=== PATIENT | female | born 1935 | race Caucasian/White ===

== ENCOUNTER 2017-03-20 09:37 | Observation (INO) | payer MEDICARE, OTHER ==
[~2017-03-20] VITALS: Ht 152.4 cm; Wt 68.2 kg
[2017-03-20] MEDS ORDERED: SOD CHLORIDE 0.9% 500 ML IV STA (09:41)
[2017-03-20] MEDS ORDERED: ONDANSETRON 4 MG INJ IV STA (09:41)
[2017-03-20] MEDS ORDERED: morphine 4 MG/ML VIAL IV STA (09:41)
[2017-03-20] MEDS ORDERED: DIPHTH/TET/ACEL PERTUSS (ADULT) 0.5 ML VIAL IM* ONE (10:00)
--- NOTE | 2017-03-20 10:02 | ERD ---
ER Documentation Chief Complaint Date/Time DATE: 03/20/17 TIME: 10:00 Chief Complaint face pain from a trip and fall no loc. mild neck pain. epistaxis noted. HPI 81-year-old woman brought in by EMS after questionable mechanical trip and fall while taking out the trash. Patient does not recall the episode and family members were later at the bedside states she has had 2 similar syncopal episodes over the last few weeks. They suspect prior to syncope her blood pressure has been running on the low side. The episode was at least partially witnessed by a neighbor and there was no seizure activity noted. She sustained bleeding from the bridge of the nose and abrasion to the right cheek. There was no loss of consciousness, no difficulty ambulating after the fall, no chest pain or shortness of breath, no complaints of headache or blurry vision, no vomiting. Patient was transported here by EMS without further complications. ROS All systems reviewed and are negative except as per history of present illness. PMhx/Soc Obesity, diabetes mellitus, hypertension History of Surgery: Yes (hysterectomy, cataract surgery) Anesthesia Reaction: No Hx Neurological Disorder: No Hx Respiratory Disorders: No Hx Cardiac Disorders: No Hx Psychiatric Problems: No Hx Miscellaneous Medical Probl: Yes (hypertension and diabetes) Hx Alcohol Use: No Hx Substance Use: No Hx Tobacco Use: No Smoking Status: Never smoker FmHx Family History: No diabetes Physical Exam Vitals Vital Signs Date Time Temp Pulse Resp B/P Pulse Ox O2 Delivery O2 Flow Rate FiO2 03/20/17 11:51 72 20 152/84 98 03/20/17 09:47 97.9 80 20 130/63 98 Physical Exam GENERAL: Well-developed, well-nourished, well-hydrated, in no apparent distress , looks nontoxic in appearance, afebrile HEENT: Moist mucous membranes, pink conjunctiva, no cervical spine tenderness or step-off deformity, abrasions and contusions to the face including the right cheek and bridge of the nose with mild bleeding. NEURO: Alert and oriented 3, cranial nerves II through XII intact bilaterally, pupils equal round reactive to light, no focal deficits or facial asymmetry, sensation intact distally Strength 5/5 in upper and lower extremities bilaterally CARDIAC: Regular rate and rhythm, no murmurs rubs or gallops LUNGS: Clear bilaterally no wheezing crackles or stridor ABDOMEN: Soft nontender, no guarding, no rigidity, no rebound, no psoas sign no obturator sign. Normoactive bowel sounds SKIN: Warm and dry to touch, positive abrasions contusions to the face, no lacerations. EXTREMITIES: No clubbing cyanosis or edema, calves are bilaterally symmetrical, no Homans sign, no popliteal cord sign. Distal pulses equal and bilateral PSYCH: Normal affect without agitation or irritability Result Diagram: 03/20/17 1018 03/20/17 1018 Results 24 hrs Laboratory Tests Test 03/20/17 10:10 03/20/17 10:18 03/20/17 10:52 Troponin I < 0.012ng/ml White Blood Count 8.110^3/ul Red Blood Count 3.9510^6/ul Hemoglobin 11.8g/dl Hematocrit 35.0% Mean Corpuscular Volume 88.6fl Mean Corpuscular Hemoglobin 29.9pg Mean Corpuscular Hemoglobin Concent 33.7g/dl Red Cell Distribution Width 13.4% Platelet Count 50894^3/UL Mean Platelet Volume 10.0fl Neutrophils % 49.1% Lymphocytes % 41.0% Monocytes % 7.7% Eosinophils % 1.2% Basophils % 0.6% Nucleated Red Blood Cells % 0.0/100WBC Neutrophils # 4.010^3/ul Lymphocytes # 3.310^3/ul Monocytes # 0.610^3/ul Eosinophils # 0.110^3/ul Basophils # 0.110^3/ul Nucleated Red Blood Cells # 0.010^3/ul Prothrombin Time 12.2Sec Prothrombin Time Ratio 1.0 INR International Normalized Ratio 0.91 Sodium Level 141mmol/L Potassium Level 4.2mmol/L Chloride Level 102mmol/L Carbon Dioxide Level 22mmol/L Anion Gap 21 Blood Urea Nitrogen 27mg/dl Creatinine 1.21mg/dl Glucose Level 202mg/dl Calcium Level 9.8mg/dl Total Bilirubin 0.2mg/dl Direct Bilirubin 0.00mg/dl Indirect Bilirubin 0.2mg/dl Aspartate Amino Transf (AST/SGOT) 20IU/L Alanine Aminotransferase (ALT/SGPT) 31IU/L Alkaline Phosphatase 81IU/L Total Protein 7.4g/dl Albumin 4.2g/dl Globulin 3.20g/dl Albumin/Globulin Ratio 1.31 Lipase 38U/L Bedside Glucose 189mg/dL Current Medications Medications (Trade) Dose Ordered Sig/Rory Route PRN Reason Start Time Stop Time Status Last Admin Dose Admin Sodium Chloride (NS) 500 ml @ 500 mls/hr Q1H STAT IV 03/20/17 09:41 03/20/17 10:40 DC 03/20/17 10:10 Morphine Sulfate (morphine) 4 mg ONCE STAT IV 03/20/17 09:41 03/20/17 09:44 DC 03/20/17 10:14 Ondansetron HCl (Zofran Inj) 4 mg ONCE STAT IV 03/20/17 09:41 03/20/17 09:44 DC 03/20/17 10:10 Diphtheria/ Tetanus/Acell Pertussis (Adacel) 0.5 ml ONCE ONCE IM* 03/20/17 10:00 03/20/17 10:01 DC 03/20/17 10:46 Procedures/MDM IV line was established patient was placed on die trimmer rhythm strip revealed a sinus rhythm at about 70 bpm with upright P and T waves. Patient was afebrile. Patient was immediately placed in rigid cervical spine collar I administered 1 L normal saline intravenously, morphine 4 mg IV, Zofran 4 mg IV , tetanus toxoid 0.5 mL intramuscular injection. Patient's pain was controlled. Abrasions contusions were irrigated with normal saline, triple antibiotic ointment and gauze dressing was applied. CT scan of the brain was performed that was negative for acute bleed mass or shift. CT scan of the cervical spine was performed was negative for acute fracture or dislocation. Maxillofacial CT scan was performed that was negative for acute fractures or dislocations. Although there was nasal tip abnormality noted. Please refer to radiologist dictation for full report. One AP view of the chest performed, read by me reveals no acute infiltrates, normal mediastinum, sharp costophrenic and cardiac borders, no air under the diaphragm. Otherwise unremarkable chest x-ray. X-ray Pelvis 1V Interpreted by me: Bones: No fracture Joints: No dislocation Foreign body: None CBC and electrolytes were normal, liver function tests are normal, troponin was negative. EKG performed, read by me: 80 bpm, normal sinus rhythm, normal axis, first- degree atrial ventricular block with a OH interval of 216 ms, no acute ST segment changes, narrow QRS complex, with good R-wave progression in precordial leads. Patient will be admitted to telemetry setting for continued medical management cardiology consultation. Departure Diagnosis: Primary Impression: Syncope Syncope type: unspecified Qualified Code: R55 - Syncope, unspecified syncope type Additional Impressions: Facial contusion Encounter type: initial encounter Qualified Code: S00.83XA - Facial contusion, initial encounter Nasal fracture Encounter type: initial encounter Fracture type: closed Qualified Code: S02.2XXA - Closed fracture of nasal bone, initial encounter Abrasion Condition: ALBER Summers MD Mar 20, 2017 10:02
--- NOTE | 2017-03-20 10:21 | RADRPT ---
PROCEDURE: XR Chest. CLINICAL INDICATION: Trauma. Status post fall. Pain. TECHNIQUE: Single frontal chest x-ray. COMPARISON: None. FINDINGS: Cardiomegaly with hilar vascular and interstitial congestive changes are present. . No alveolar inf iltrates, edema, or effusions.. Calcific atherosclerosis of the aorta is present.. 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 IMPRESSION: Cardiomegaly with hilar vascular and interstitial congestive changes are. RPTAT: RR .Krishan Chong MD, MD Date Time Electronically viewed and signed by .Krishan Chong MD, MD on 03/20/2017 10:21 .L/
[2017-03-20 10:26] LABS: ADD SCAN DIFF NO
[2017-03-20 10:31] LABS: BASOPHIL # 0.1 10^3/ul (0.0-0.1); BASOPHILS % 0.6 % (0.0-2.0); EOSINOPHILS # 0.1 10^3/ul (0.0-0.5); EOSINOPHILS % 1.2 % (0.0-7.0); HEMOGLOBIN 11.8 g/dl (12.0-16.0); LYMPHOCYTES # 3.3 10^3/ul (0.8-2.9); MEAN CORPUSCULAR HEMOGLOBIN 29.9 pg (29.0-33.0); MEAN CORPUSCULAR HGB CONC 33.7 g/dl (32.0-37.0); MEAN CORPUSCULAR VOLUME 88.6 fl (82.0-101.0); MONOCYTE # 0.6 10^3/ul (0.3-0.9); MONOCYTES % 7.7 % (0.0-11.0); NEUTROPHILS % 49.1 % (39.0-77.0); PLATELET COUNT 221 10^3/UL (140-415); RED BLOOD COUNT 3.95 10^6/ul (4.20-5.40); RED CELL DISTRIBUTION WIDTH 13.4 % (11.5-14.5); WHITE BLOOD COUNT 8.1 10^3/ul (4.8-10.8)
--- NOTE | 2017-03-20 10:38 | RADRPT ---
PROCEDURE: CT face without contrast CLINICAL INDICATION: Fall, face pain TECHNIQUE: CT of the face without contrast was performed on a multidetector CT scanner, with multip lanar reformats. One or more of the following dose reduction techniques were used: Automated exposu re control, adjustment in mA and / or kV according to patient size, use of iterative reconstructive technique. CTDIvol = 29 mGy and DLP = 501 mGy-cm. COMPARISON: None available. FINDINGS: There is a mildly displaced fracture of the tip of of the nasal bones. The nasal septum is mildly d eviated to the right with possible subtle nondisplaced fracture of the anterior bony nasal septum. There is adjacent soft tissue swelling and tiny foci of gas. No additional facial fracture is ident ified. Orbital structures are intact with intraocular artificial lenses noted. Temporomandibular j oints are intact. There is partial right sphenoid sinus opacification with mucosal thickening and s ecretions, mild left sphenoid sinus mucosal thickening, mild to moderate bilateral anterior ethmoid air cell mucosal thickening. There are scattered dental caries with small periapical lucencies seen at the residual bilateral mandibular molars. There is a punctate calcification/calculus in the left parotid gland. IMPRESSION: 1. Mildly depressed fracture at the tip of the nasal bones, and mild leftward nasal septal deviatio n with possible subtle nondisplaced bony nasal septal fracture. 2. Paranasal sinus and disease described above. 3. Punctate left parotid calcification / calculus. RPTAT: VV .Jalen Masters MD, Date Time Electronically viewed and signed by .Jalen Masters MD, MD on 03/20/2017 10:38 .O/
--- NOTE | 2017-03-20 10:40 | RADRPT ---
PROCEDURE: CT brain without contrast CLINICAL INDICATION: Fall, head pain TECHNIQUE: CT of the brain without contrast performed on a multidetector CT scanner, with multiplan ar reformats. One or more of the following dose reduction techniques were used: Automated exposure control, adjustment in mA and / or kV according to patient size, use of iterative reconstructive joey hnique. CTDIvol = 44 mGy; DLP = 720 mGy-cm. COMPARISON: None available FINDINGS: No acute intracranial hemorrhage is identified. No extra-axial fluid collection is seen. There is no mass effect. No midline shift is identified. The ventricles and sulci are mild to moderately enlarged compatible with volume loss. There are mild areas of hypodensity in the periventricular - deep white matter which are nonspecific but suggestive of chronic small vessel ischemic changes. Cid-white differentiation is preserved. Atherosclerotic calcifications of the intracranial internal carotid arteries are noted. Calvarium and skull base are intact. Right mastoid under pneumatization noted. Facial findings will be described in the separate facial CT report. IMPRESSION: 1. No evidence of acute intracranial pathology. 2. Mild to moderate volume loss, with mild chronic small vessel ischemic changes. 3. See separate facial CT report for additional findings. RPTAT: VV .Jalen Masters MD, MD Date Time Electronically viewed and signed by .Jalen Masters MD, on 03/20/2017 10:40 .O/
[2017-03-20 10:44] LABS: INR 0.91; PROTIME 12.2 Sec (12.2-14.2)
[2017-03-20 10:48] LABS: ALBUMIN 4.2 g/dl (3.3-4.9); ALBUMIN/GLOBULIN RATIO 1.31; BILIRUBIN,INDIRECT 0.2 mg/dl (0-1.1); BILIRUBIN,TOTAL 0.2 mg/dl (0.2-1.3); CALCIUM 9.8 mg/dl (8.4-10.2); CREATININE 1.21 mg/dl (0.44-1.00); POTASSIUM 4.2 mmol/L (3.5-5.1); TOTAL PROTEIN 7.4 g/dl (6.1-8.1)
--- NOTE | 2017-03-20 10:50 | RADRPT ---
PROCEDURE: CT cervical spine without contrast. CLINICAL INDICATION: Fall. Neck pain. TECHNIQUE: CT of the cervical spine without contrast was performed on a multidetector CT scanner, w ith multiplanar reformats. One or more of the following dose reduction techniques were used: Automa maya exposure control, adjustment in mA and / or kV according to patient size, use of iterative recon structive technique. CTDIvol = 22 mGy and DLP = 473 mGy-cm. COMPARISON: None available. FINDINGS: No acute fracture or dislocation is identified. There is straightening of the lordosis of the cervi nereida spine. Mild grade 1 anterolisthesis at C7-T1, also at T1-2, T2-3, T3-4. Vertebral bodies are g rossly maintained in height. There are prominent multilevel anterior osteophytes. There is disk sp haresh narrowing, moderate at C4-5, mild - moderate at C5-6, moderate - severe at C6-7, mild at C7-T1 w ith superior endplate Schmorl node at T1. There are degenerative changes at the atlantoaxial joint s. There is congenital / developmental narrowing of the cervical spinal canal. There is generalize d osteopenia. C2-3: There is a posterior disk/osteophyte. There is mild-moderate central canal stenosis. There is no foraminal narrowing. C3-4: There is a posterior disk osteophyte. There is mild to moderate central canal stenosis. There are uncovertebral osteophytes and facet arthropathy with mild left foraminal narrowing. C4-5: There is a posterior disk osteophyte. There is moderate central canal stenosis. There are un covertebral osteophytes and facet arthropathy with severe right, mild left foraminal narrowing. C5-6: There is a posterior disk/osteophyte. There is moderate central canal stenosis. There are un covertebral osteophytes and facet arthropathy with moderate to severe right, mild-moderate left fora sonja narrowing. C6-7: There is a posterior disk/osteophyte. There is mild to moderate central canal stenosis There are uncovertebral osteophytes and facet arthropathy with moderate to severe right, mild left forami nal narrowing. C7-T1: No gross disk bulge or herniation is seen. There is no acquired central canal stenosis. The re are uncovertebral osteophytes and facet arthropathy with mild-moderate right, moderate to severe left foraminal narrowing. IMPRESSION: 1. No acute fracture/dislocation identified. 2. Advanced cervical spondylosis/degenerative enthesopathy, with grade 1 anterolisthesis at C7-T1. 3. Multilevel mild to moderate central canal stenoses and multilevel foraminal narrowing outlined i n detail above. 4. 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 5. Osteopenia. RPTAT: VV .Jalen Masters MD, MD Date Time Electronically viewed and signed by .Jalen Masters MD, on 03/20/2017 10:50 .O/
--- NOTE | 2017-03-20 12:00 | RADRPT ---
PROCEDURE: XR Pelvis. CLINICAL INDICATION: Trauma. Pain. TECHNIQUE: Single AP view of the pelvis. COMPARISON: No prior studies are available for comparison. FINDINGS: There are no fractures or dislocations. Mild bilateral acetabular subchondral sclerosis and acetabul ar spurring. No asymmetric hip joint space narrowing. Normal articulation of the femoral heads and acetabula. The visualized proximal femurs are intact. The osseous mineralization is normal. The sacroiliac joints are normal. IMPRESSION: 1.Normal AP view of the pelvis. RPTAT:AAJJ Rudy Tejada Physician Date Time Electronically viewed and signed by Physician Bere on 03/20/2017 12:00 GIULIANA/
[2017-03-20 13:27] VITALS: TEMP 97.9
[2017-03-20 13:59] LABS: ADD UMIC YES; UR ASCORBIC ACID NEGATIVE (NEGATIVE); UR BILIRUBIN (Dip) NEGATIVE (NEGATIVE); UR BLOOD (Dip) NEGATIVE (NEGATIVE); UR CLARITY CLEAR (CLEAR); UR COLOR STRAW (YELLOW); UR GLUCOSE (Dip) 1+ mg/dL (NEGATIVE); UR KETONES (Dip) NEGATIVE (NEGATIVE); UR LEUKOCYTE ESTERASE (Dip) TRACE Leu/ul (NEGATIVE); UR NITRITE (Dip) NEGATIVE (NEGATIVE); UR RBC 1 /HPF (0-5); UR SPECIFIC GRAVITY (Dip) 1.006 (1.003-1.030); UR TOTAL PROTEIN (Dip) NEGATIVE (NEGATIVE); UR UROBILINOGEN (Dip) NEGATIVE (NEGATIVE)
[2017-03-20 14:00] VITALS: BP 118/53; PULSE 71; RESP 17
[2017-03-20] MEDS ORDERED: morphine 2 MG INJ IV PRN (14:30)
[2017-03-20] MEDS ORDERED: MAGNESIUM HYDROXIDE 30ML CUP PO PRN (14:30)
[2017-03-20] MEDS ORDERED: ONDANSETRON 4 MG INJ IV PRN (14:30)
[2017-03-20] MEDS ORDERED: DOCUSATE SODIUM 100 MG CAP PO PRN (14:30)
[2017-03-20] MEDS ORDERED: NACL 0.9% 3 ML SYG IV SCH (14:30)
[2017-03-20] MEDS ORDERED: BISACODYL 10 MG SUPP PR PRN (14:30)
[2017-03-20] MEDS ORDERED: DEXL60CA2 PO (15:49)
[2017-03-20] MEDS ORDERED: SENN-53 PO (15:49)
[2017-03-20] MEDS ORDERED: CLOP75TA27 PO (15:49)
[2017-03-20] MEDS ORDERED: ROSU20TA27 PO (15:49)
[2017-03-20] MEDS ORDERED: DICL100G37 TOP (15:49)
[2017-03-20] MEDS ORDERED: OMEG-135 PO (15:49)
[2017-03-20] MEDS ORDERED: LISI40TA9 PO (15:49)
[2017-03-20] MEDS ORDERED: METO25TA7 PO (15:49)
[2017-03-20] MEDS ORDERED: LINA145C PO (15:49)
[2017-03-20] MEDS ORDERED: CYCL1DRO BOTH EYES (15:49)
[2017-03-20] MEDS ORDERED: SITA1TAB5 PO (15:49)
[2017-03-20] MEDS ORDERED: AMLO-147 PO (15:49)
[2017-03-20] MEDS ORDERED: ALPR0.5T10 PO (15:49)
[2017-03-20] MEDS ORDERED: GLUCOSE GEL 15 GRAM TUBE PO PRN ×2 (16:00)
[2017-03-20] MEDS ORDERED: GLUCOSE GEL 15 GRAM TUBE BUCCAL PRN (16:00)
[2017-03-20] MEDS ORDERED: GLUCAGON 1 MG INJ IM PRN (16:00)
[2017-03-20] MEDS ORDERED: DEXTROSE 50% 50 ML SYRINGE IV PRN ×2 (16:00)
[2017-03-20 16:22] VITALS: PULSE 72
--- NOTE | 2017-03-20 16:34 | RADRPT ---
Echocardiogram Report Patient Name: SANTY SHARMA Gender: Female Date: 1935 Study Date: 20-Mar-2017 History Instructor: Shonda [facility] Location: 5548 Ref. Physician: JAMESON WEEKS Quality: Technically Difficult Study Procedures: Transthoracic echocardiogram with complete 2D, M-Mode, and doppler examination. Indications: Syncope. 2D/M Mode Doppler Measurement Value Normal Ranges Measurement Value Normal Ranges LVIDd 2D 4.5 3.5 - 5.6 cm AV Peak Shashank 1.3 m/sec LVIDs 2D 3.0 2.1 - 4.1 cm AV Peak PG 6.0 mmHg FS 2D 34.0 % LVOT Peak Shashank 1.0 m/sec LVPWd 2D 1.3 0.6 - 1.1 cm LVOT Peak PG 4.0 mmHg IVSd 2D 1.3 0.6 - 1.1 cm MV E Peak Shashnak 0.8 m/sec IVS/LVPW 2D 1.0 MV A Peak Shashank 1.0 m/sec AoR Diam 2D 3.0 2.0 - 3.7 cm MV E/A 0.8 LA/Ao 2D 1 0 - 1 MV Decel Time 306 msec EDV 2D 91.1 cm3 MV E/A 0.8 ESV 2D 26.2 cm3 LA Dimen 2D 3.3 2.3 - 4.0 cm Findings Left Ventricle: Normal left ventricular systolic function. Normal left ventricular cavity size. Mild concentric left ventricular hypertrophy. Ejection fraction is visually estimated at 65 %. Tissue Doppler/Mitral Doppler indices are consistent with impaired relaxation (Stage I diastolic dysfunction). Right Ventricle: Normal right ventricular size. Normal right ventricular systolic function. Left Atrium: The left atrium is normal in size. Right Atrium: The right atrium is normal in size. Mitral Valve: Mild mitral leaflet calcification. Mild mitral annular calcification. Trace mitral regurgitation. Aortic Valve: No significant aortic stenosis or insufficiency. Aortic cusps appear mildly calcified. Tricuspid Valve: Normal appearance and function of the tricuspid valve with trace physiologic regurgitation. Pulmonic Valve: Pulmonic valve not well visualized. There is trace pulmonic regurgitation. Pericardium: Normal pericardium with no significant pericardial effusion. Aorta: Normal aortic root. IVC: Normal size and normal respiratory collapse consistent with normal right atrial pressure. Conclusions 1.Normal left ventricular systolic function. Normal left ventricular cavity size. Mild concentric left ventricular hypertrophy. Ejection fraction is visually estimated at 65 %. Tissue Doppler/Mitral Doppler indices are consistent with impaired relaxation (Stage I diastolic dysfunction). 2.Normal right ventricular size. Normal right ventricular systolic function. 3.The left atrium is normal in size. 4.The right atrium is normal in size. 5.No significant valvular stenosis or regurgitation seen. 6.Normal pericardium with no significant pericardial effusion. Electronically Signed By: Tye Worley 20-Mar-2017 16:33:25 -0700 Patient Name: SANTY SHARMA Study Date: 20-Mar-2017 [id number]
[2017-03-20 17:00] VITALS: BP_SYST 109; BP_SYST 115; BP_SYST 128; BP_DIAS 57; BP_DIAS 58; BP_DIAS 72; PULSE 73; PULSE 76; PULSE 80
[2017-03-20] MEDS: SOD CHLORIDE 0.9% 1,000 ML IV SCH (17:30)
[2017-03-20] MEDS: ACETAMINOPHEN 325 MG TAB PO PRN (17:45)
[2017-03-20] MEDS: INSULIN ASPART [NOVOLOG] 3 ML PEN SC SCH ×2 (17:53→20:24)
[2017-03-20 19:40] LABS: CREATINE KINASE 133 IU/L (23-200)
[2017-03-20 19:53] LABS: CK-MB 2.04 ng/ml (0.0-2.4)
[2017-03-20 19:56] LABS: TROPONIN-I < 0.012 ng/ml (0.00-0.12)
[2017-03-20 20:00] VITALS: BP_SYST 130; BP_SYST 154; BP_DIAS 58; BP_DIAS 60; BP_DIAS 67; RESP 18; RESP 19; Ht 152.4 cm; Wt 68.2 kg
[2017-03-20 20:18] VITALS: PULSE 72
[2017-03-20] MEDS: FAMOTIDINE 20 MG TAB PO SCH (20:21)
[2017-03-20] MEDS: HYDROCODONE/APAP (5/325) TAB PO PRN (21:47)
[2017-03-21] VITALS (12 sets, daily range): BP systolic 117–163; BP diastolic 56–71; PULSE 67–76; RESP 18
[2017-03-21] MEDS ORDERED: ACCU-CHEK XX SCH ×2 (02:00)
[2017-03-21] MEDS: SOD CHLORIDE 0.9% 1,000 ML IV SCH ×2 (03:44→10:22)
[2017-03-21] MEDS: ACETAMINOPHEN 325 MG TAB PO PRN (03:58)
[2017-03-21 08:40] LABS: ADD SCAN DIFF NO
[2017-03-21] MEDS: FAMOTIDINE 20 MG TAB PO SCH (08:45)
[2017-03-21 08:46] LABS: BASOPHIL # 0.1 10^3/ul (0.0-0.1); BASOPHILS % 0.5 % (0.0-2.0); EOSINOPHILS # 0.1 10^3/ul (0.0-0.5); EOSINOPHILS % 1.2 % (0.0-7.0); HEMATOCRIT 33.2 % (37.0-47.0); HEMOGLOBIN 10.8 g/dl (12.0-16.0); LYMPHOCYTES # 3.8 10^3/ul (0.8-2.9); LYMPHOCYTES % 41.5 % (15.0-51.0); MEAN CORPUSCULAR HEMOGLOBIN 29.3 pg (29.0-33.0); MEAN CORPUSCULAR HGB CONC 32.5 g/dl (32.0-37.0); MEAN PLATELET VOLUME 10.5 fl (7.4-10.4); MONOCYTE # 0.8 10^3/ul (0.3-0.9); MONOCYTES % 8.4 % (0.0-11.0); NEUTROPHIL # 4.4 10^3/ul (1.6-7.5); NEUTROPHILS % 48.1 % (39.0-77.0); PLATELET COUNT 230 10^3/UL (140-415); RED BLOOD COUNT 3.69 10^6/ul (4.20-5.40); RED CELL DISTRIBUTION WIDTH 13.5 % (11.5-14.5); WHITE BLOOD COUNT 9.2 10^3/ul (4.8-10.8)
[2017-03-21] MEDS: INSULIN ASPART [NOVOLOG] 3 ML PEN SC SCH ×3 (08:48→17:20)
[2017-03-21] MEDS ORDERED: METOPROLOL (XL) 25 MG TAB PO SCH (09:30)
[2017-03-21] MEDS ORDERED: SENNA TAB PO SCH (09:30)
[2017-03-21] MEDS ORDERED: ALPRAZOLAM 0.5 MG PO PRN (09:30)
[2017-03-21] MEDS ORDERED: PANTOPRAZOLE (EC) 40 MG TAB PO SCH (09:30)
[2017-03-21] MEDS ORDERED: ALPRAZOLAM 0.25 MG TAB PO PRN (09:30)
[2017-03-21] MEDS ORDERED: CLOPIDOGREL 75 MG TAB PO SCH (09:30)
[2017-03-21 09:31] LABS: ALBUMIN 3.6 g/dl (3.3-4.9); ALBUMIN/GLOBULIN RATIO 1.2; BILIRUBIN,INDIRECT 0.3 mg/dl (0-1.1); BILIRUBIN,TOTAL 0.3 mg/dl (0.2-1.3); CALCIUM 8.8 mg/dl (8.4-10.2); CREATININE 1.13 mg/dl (0.44-1.00); MAGNESIUM 1.6 mg/dl (1.7-2.5); POTASSIUM 4.2 mmol/L (3.5-5.1); TOTAL PROTEIN 6.6 g/dl (6.1-8.1)
[2017-03-21] MEDS: HYDROCODONE/APAP (5/325) TAB PO PRN (09:43)
[2017-03-21] MEDS ORDERED: MAGNESIUM SULFATE 2 GM/50 ML 50 ML IVPB ONE (10:00)
[2017-03-21] MEDS ORDERED: INSULIN GLARGINE [LANtus] 3 ML PEN SC SCH (10:00)
[2017-03-21] MEDS ORDERED: [UNRECOGNIZED DRUG - OTHER] XX SCH (11:00)
[2017-03-21] MEDS ORDERED: CYCLOSPORINE 0.05% OPH DROPERETTE BOTH EYES SCH (11:00)
--- NOTE | 2017-03-21 11:00 | HP ---
Date/Time of Note Date/Time of Note DATE: 03/21/17 TIME: 10:43 Assessment/Plan VTE Prophylaxis VTE Prophylaxis Intervention: SCD's Lines/Catheters IV Catheter Type (from Nrs): Peripheral IV Urinary Cath still in place: No Assessment/Plan Assessment/Plan 81 years old female with: 1. Syncopal episodes, likely secondary to orthostatic hypotension, workup negative so far including normal 2D echocardiogram, normal cardiac enzymes and unremarkable EKG. CAT scan of the brain within normal. Patient needs to follow -up with her primary care physician, blood pressure medications have been adjusted. Also was insulin regimen will be adjusted for her diabetes. The family is very insistent on taking the patient home today, any further workup can be done outpatient but for now just medication management and PCP follow-up. Home health RN will be ordered 2. Hypertension, reported as malignant, resume metoprolol XL for now. Patient may resume the rest of her outpatient medication stepwise with supervision from a home health RN and or primary care physician. This was passed on to the family and also what they have confirmed the patient has a blood pressure machine and will be using it to check her blood pressures. 3. Diabetes mellitus: Given reported episodes of hypoglycemia, chronic kidney disease and renal insufficiency, I will discontinue her metformin for now and just leave her on insulin, will switch her dosing of Lantus to a.m. dosing and based on her weight she should be dosed 13 units every morning Hold off of Janumet for now Follow-up with primary care physician for additional adjustments 4. Hyperlipidemia: Resume home medications 5. Chronic osteoarthritis, I ordered a uric acid level, continue pain control, follow-up x-rays of the hands and the shoulders given this recent fall, ground- level Prophylaxis: Proton pump inhibitors for GI prophylaxis, SCDs for DVT prophylaxis Disposition: Follow-up on x-rays of the shoulder and hands. Discharge planning later this afternoon if remains stable per family wishes. Home health ordered HPI/ROS Admit Date/Time Admit Date/Time Mar 20, 2017 at 13:40 Hx of Present Illness Chief complaint: Status post syncope and fall History of presenting illness: This is a 81-year-old female with history of hypertension, diabetes mellitus, osteoarthritis chronic, hypertension described as malignant, chronic kidney disease and also multiple episodes of orthostatic hypotension or hypoglycemia leading to syncopal episodes who was brought into the emergency department after being found in front of her house on the ground. Patient has some facial trauma mostly skin tears, and she does not remember the episode. It is unclear how long she lost consciousness. Upon arrival in the emergency department she was found to be relatively hypotensive systolics in the 100s, dehydrated with prerenal azotemia, blood sugar stable. I had a long talk with the family, patient is known to have episodes of hypotension and or hypoglycemia leading to loss of consciousness. She also does not drink water only sleeps with her medications. She has remained stable on telemetry no signs of arrhythmias, blood pressure is stable currently orthostatic stasis are negative this morning. She has been on IV fluids. She had series of x-rays and CTs. Head CT cervical spine CT shows no acute findings on the chronic arthritis, x-rays of her pelvis and chest x-ray are within normal except for some cardiomegaly. Facial CT does show was some mild nasal bone fracture with no further compromise. I had a discussion with the family they are very adamant on going home today. Patient is stable currently. She was complaining of hand pain and swelling along with a shoulder pain, x- rays are pending. Her insulin regimen has been simplified. If she remains stable and after PT evaluation today she will be discharged home later with close outpatient follow-up with her primary care physician. No recent history of infection, patient is otherwise in her usual state of health very active. No chest pains. ROS Constitutional: no complaints ENT: no complaints Respiratory: no complaints Cardiovascular: no complaints Gastrointestinal: no complaints Skin: skin lesions (Facial post fall) Neurologic: syncope PMH/Family/Social Past Medical History Previous history of syncope secondary to orthostatic hypotension and or hypoglycemia No coronary artery disease, no CVA history Medical History: diabetes, high cholesterol, hypertension, renal disease Past Surgical History Status post hysterectomy remotely Family History Significant Family History: no pertinent family hx Social History Alcohol Use: none Smoking Status: Never smoker Drug Use: none Exam/Review of Systems Vital Signs Vitals Vital Signs Date Time Temp Pulse Resp B/P Pulse Ox O2 Delivery O2 Flow Rate FiO2 03/21/17 08:20 97.8 73 18 154/68 92 03/20/17 14:00 Room Air Intake and Output 03/20/17 03/20/17 03/21/17 15:00 23:00 07:00 Intake Total 1250 ml Output Total 900 ml Balance 350 ml Exam Constitutional: alert, oriented, other (Facial bruises and skin lesions), well developed Respiratory: clear to auscultation, normal air movement Cardiovascular: nl pulses, regular rate and rhythm Gastrointestinal: non-tender Musculoskeletal: nl extremities to inspection Extremities: normal pulses, other (No edema, clubbing or cyanosis) Neurological: SCHEDULE MAKER II-XII intact, nl mental status, nl speech, nl strength Skin: other (Facial skin abrasions and lacerations superficial) Labs Result Diagram: 03/21/17 0747 03/21/17 0747 Medications Medications Current Medications Sodium Chloride (NS) 1,000 ml @ 75 mls/hr [id number] IV Last administered on 03/21 03:44; Admin Dose 100 MLS/HR; Start 03/20/17 at 14:12 Ondansetron HCl (Zofran Inj) 4 mg Q6H PRN IV NAUSEA AND/OR VOMITING; Start at 14:30 Acetaminophen (Tylenol Tab) 650 mg Q6H PRN PO PAIN LEVEL 1-3 OR FEVER Last administered on 03/21/17 03:58; Admin Dose 650 MG; Start 03/20/17 at 14:30 Acetaminophen/ Hydrocodone Bitart (Novinger (5/325)) 1 tab Q6H PRN PO PAIN LEVEL 4 -6 Last administered on 03/21/17 09:43; Admin Dose 1 TAB; Start 03/20/17 at 14: 30 Morphine Sulfate (morphine) 2 mg Q4H PRN IV PAIN LEVEL 7-10; Start 03/20/17 at 14:30 Docusate Sodium (Colace) 100 mg Q12H PRN PO CONSTIPATION; Start 03/20/17 at 14: 30 Magnesium Hydroxide (Milk Of Mag) 30 ml DAILY PRN PO CONSTIPATION; Start at 14:30 Bisacodyl (Dulcolax Supp) 10 mg DAILY PRN SD CONSTIPATION; Start 03/20/17 at 14 :30 Famotidine (Pepcid) 20 mg Q12 PO Last administered on 03/21/17 08:45; Admin Dose 20 MG; Start 03/20/17 at 21:00 Diagnostic Test (Pha) (Accu-Chek) 1 ea 02 XX ; Start 03/21/17 at 02:00 Miscellaneous Information 1 ea NOTE XX ; Start 03/20/17 at 16:00 Glucose (Glutose) 15 gm Q15M PRN PO DECREASED GLUCOSE; Start 03/20/17 at 16:00 Glucose (Glutose) 22.5 gm Q15M PRN PO DECREASED GLUCOSE; Start 03/20/17 at 16: 00 Dextrose (D50w Syringe) 25 ml Q15M PRN IV DECREASED GLUCOSE; Start 03/20/17 at 16:00 Dextrose (D50w Syringe) 50 ml Q15M PRN IV DECREASED GLUCOSE; Start 03/20/17 at 16:00 Glucagon (Glucagen) 1 mg Q15M PRN IM DECREASED GLUCOSE; Start 03/20/17 at 16:00 Glucose (Glutose) 15 gm Q15M PRN BUCCAL DECREASED GLUCOSE; Start 03/20/17 at 16 :00 Clopidogrel Bisulfate (plaVIX) 75 mg DAILY PO Last administered on 03/21/17 09 :42; Admin Dose 75 MG; Start 03/21/17 at 09:30 Cyclosporine (Restasis) 1 drop Q12 BOTH EYES ; Start 03/21/17 at 11:00 Diclofenac Sodium (Voltaren 1% Gel) BID TP ; Start 03/21/17 at 12:00 Metoprolol Succinate (Toprol Xl) 25 mg DAILY PO Last administered on 03/21/17 09:44; Admin Dose 25 MG; Start 03/21/17 at 09:30 Senna (Senokot) 1 tab BID PO Last administered on 03/21/17 09:43; Admin Dose 1 TAB; Start 03/21/17 at 09:30 Miscellaneous Information 145 mcg DAILY PO ; Start 03/22/17 at 09:00; Status UNV Pantoprazole (Protonix Tab) 40 mg DAILY@06 PO Last administered on 03/21/17 09 :43; Admin Dose 40 MG; Start 03/21/17 at 09:30 Alprazolam (Xanax) 0.5 mg QHS PRN PO ANXIETY; Start 03/21/17 at 09:30 Insulin Glargine 13 unit 13 unit DAILY@08 SC ; Start 03/21/17 at 10:00 Magnesium Sulfate (Magnesium Sulfate 2 Gm/50 ml) 50 ml @ 25 mls/hr ONCE ONCE IVPB ; Start 03/21/17 at 10:00; Stop 03/21/17 at 11:59 Neomycin/ Polymyxin/ Bacitracin (Neosporin Topical Oint) 1 applic TID TOP ; Start 03/21/17 at 13:00 Procedures Procedures PROCEDURE: CT face without contrast CLINICAL INDICATION: Fall, face pain TECHNIQUE: CT of the face without contrast was performed on a multidetector CT scanner, with multiplanar reformats. One or more of the following dose reduction techniques were used: Automated exposure control, adjustment in mA and / or kV according to patient size, use of iterative reconstructive technique. CTDIvol = 29 mGy and DLP = 501 mGy-cm. COMPARISON: None available. FINDINGS: There is a mildly displaced fracture of the tip of of the nasal bones. The nasal septum is mildly deviated to the right with possible subtle nondisplaced fracture of the anterior bony nasal septum. There is adjacent soft tissue swelling and tiny foci of gas. No additional facial fracture is identified. Orbital structures are intact with intraocular artificial lenses noted. Temporomandibular joints are intact. There is partial right sphenoid sinus opacification with mucosal thickening and secretions, mild left sphenoid sinus mucosal thickening, mild to moderate bilateral anterior ethmoid air cell mucosal thickening. There are scattered dental caries with small periapical lucencies seen at the residual bilateral mandibular molars. There is a punctate calcification/calculus in the left parotid gland. IMPRESSION: 1. Mildly depressed fracture at the tip of the nasal bones, and mild leftward nasal septal deviation with possible subtle nondisplaced bony nasal septal fracture. 2. Paranasal sinus and disease described above. 3. Punctate left parotid calcification / calculus. RPTAT: VV .Jalen Masters MD, MD Date Time Electronically viewed and signed by .Jalen Masters MD, MD on 03/20/2017 10:38 PROCEDURE: XR Chest. CLINICAL INDICATION: Trauma. Status post fall. Pain. TECHNIQUE: Single frontal chest x-ray. COMPARISON: None. FINDINGS: Cardiomegaly with hilar vascular and interstitial congestive changes are present. . No alveolar infiltrates, edema, or effusions.. Calcific atherosclerosis of the aorta is present.. 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 IMPRESSION: Cardiomegaly with hilar vascular and interstitial congestive changes are. RPTAT: RR \ EKG: First-degree AV block sinus rhythm patient on beta-blockers, no other acute finding KATIE WEEKS Mar 21, 2017 10:57
--- NOTE | 2017-03-21 11:08 | RADRPT ---
AMENDMENT: 03/21/2017 4:00:23 PM Krishan Ochoa M.D Procedure: Left hand. Clinical indication: Status post fall with pain. Technique: AP, oblique and lateral views of the left hand were performed. Comparison: No. Findings: There is a large degenerative spur off the thenar site of the proximal articular surface of the left first metacarpal bone with degenerative changes around the left first carpal metacarpal joint. There is narrowing of the left first through fifth DIP joint spaces with degenerative spurri ng. There is narrowing with degenerative spurring of the second through fifth left PIP joint spaces . The left lunate bone is somewhat small and sclerotic in appearance. Impression: 1. 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 2. Sclerosis of the left lunate bone. This could be the result of chronic ischemic necrosis. 3. No acute bony fracture is identified. If there is a high index of suspicion for fracture, a CT scan of the right or left hand can be performed for more detailed evaluation. PROCEDURE: XR Hand. CLINICAL INDICATION: Generalized pain. TECHNIQUE: AP, oblique and lateral views of the right hand were obtained. COMPARISON: No prior studies are available for comparison. FINDINGS: There are degenerative changes and joint space narrowing involving the right first through fifth DIP and right second through fifth PIP joint spaces. There is narrowing of the right first carpal meta carpal joint. IMPRESSION: 1. Osteoarthritis of the right wrist and hand. RPTAT:AAJJ Physician Alex Date Time Electronically viewed and signed by Physician Alex on 03/21/2017 16:00 ANGELIA/
--- NOTE | 2017-03-21 11:12 | RADRPT ---
PROCEDURE: XR right and left shoulders. Three-views. CLINICAL INDICATION: s/p fall TECHNIQUE: AP Internal , external and Y views of the right and left shoulders were performed. COMPARISON: None. FINDINGS: Left shoulder: There are spurs around the narrowed left acromioclavicular joint. There is calcification in the sof t tissues adjacent to the left greater tuberosity of the humerus. There are degenerative changes of the left glenohumeral joint. No acute fracture is identified. The ribs and visible lung leal ar e unremarkable. Right shoulder: There are degenerative changes of the right AC and glenohumeral joints. There is calcification supe rior to the humeral head. There is no evidence of acute fracture dislocation. There are degenerati ve osteophytes in the thoracic spine. IMPRESSION: 1. Osteoarthritis of the left AC and glenohumeral joints. 2. Calcific tendonitis of the left supraspinatus tendon. 3. Osteoarthritis of the right AC and glenohumeral joints. 4. Calcific tendonitis of the right supraspinatus tendon. 5. Osteoarthritis of the thoracic spine. 6. No acute fracture is identified. RPTAT:AAJJ Physician Alex Date Time Electronically viewed and signed by Physician Alex on 03/21/2017 11:12 ANGELIA/
[2017-03-21] MEDS ORDERED: DICLOFENAC SODIUM 1% GEL 100 GM TUBE TP SCH (12:00)
[2017-03-21] MEDS ORDERED: NEOMYC/POLYMYX/BACIT 30 GM OINT TOP SCH (13:00)
--- NOTE | 2017-03-21 17:53 | PDOCDIS ---
Discharge Instructions CONDITION Patient Condition: Stable HOME CARE INSTRUCTIONS: Diet Instructions: Special Diet: ADA diet FOLLOW UP/APPOINTMENTS Follow-up Plan Follow up with PCP within 1 week Follow up with Home Health RN REFERRALS Agency Name and Phone Number: [facility] [phone] KATIE WEEKS Mar 21, 2017 17:53
[2017-03-21] MEDS ORDERED: AMLO-147 PO (17:56)
[2017-03-21] MEDS ORDERED: SITA50TA2 PO (17:56)
[2017-03-21] MEDS ORDERED: LANT3I SC (18:03)
[2017-03-21] MEDS ORDERED: NEOM28OI TOP (18:20)
[2017-03-21] MEDS ORDERED: AMLODIPINE 10 MG TAB PO SCH (21:00)
[2017-03-22] MEDS ORDERED: NON-FORMULARY/PATIENT OWN MED (Linaclotide (Linzess) 145 MCG) PO SCH (09:00)
[2017-03-22] MEDS ORDERED: NON-FORMULARY/PATIENT OWN MED (Dexlansoprazole (Dexilant) 60 MG) PO SCH (09:00)
== END 2017-03-21 18:10 | disposition home or self-care (01) ==
LOC: E/R 09:37 → MS4 13:40
PROVIDERS: ADMIT Internal Medicine; ATTEND Internal Medicine
DX: R55 Syncope and collapse (principal); S02.2XXA Fracture of nasal bones, initial encounter for closed fracture; I12.9 Hypertensive chronic kidney disease with stage 1 through stage 4 chronic kidney disease, or unspecified chronic kidney disease; N18.9 Chronic kidney disease, unspecified; E11.22 Type 2 diabetes mellitus with diabetic chronic kidney disease; Z79.4 Long term (current) use of insulin; E78.5 Hyperlipidemia, unspecified; M19.90 Unspecified osteoarthritis, unspecified site; E66.9 Obesity, unspecified; Z68.29 Body mass index [BMI] 29.0-29.9, adult; X58.XXXA Exposure to other specified factors, initial encounter; Y93.9 Activity, unspecified; Y99.9 Unspecified external cause status; Y92.9 Unspecified place or not applicable
CPT/HCPCS: 36415; 70450; 70486; 71010; 72125; 72170; 73030; 73130; 80053; 81001; 82550; 82553; 82962; 83036; 83690; 83735; 84439; 84443; 84484; 84560; 85025; 85610; 90471; 90715; 93005; 93306; 96374; 96375; 97162; 99285; G0378; G8978; G8979; G8980; J1815; J2270; J2405; J3475; J7030; J7040